=== PATIENT | female | born 1945 | race Caucasian/White ===

== ENCOUNTER 2021-03-13 23:29 | Emergency (ER) | payer MEDICARE, SELFPAY ==
--- NOTE | ~2021-03-13 | XR_ITS ---
EXAMINATION: XR CHEST CLINICAL INFORMATION: Cough and fever COMPARISON: None TECHNIQUE: 2 views of the chest were obtained. FINDINGS: Lung volumes are symmetric. No focal consolidation is seen. No evidence of pneumothorax, pleural effusion, or pulmonary edema. The cardiomediastinal contour is unremarkable. No acute osseous findings are seen. XR/XR chest 2V IMPRESSION: No acute cardiopulmonary findings.
[2021-03-14 00:17] VITALS: BP 178/83; PULSE 73; RESP 16; TEMP 37.6; O2SAT 95; BMI 25.4
--- NOTE | 2021-03-14 01:17 | ED.URI ---
HPI - URI/Sore Throat General Chief Complaint: Upper Respiratory Symptoms <Vic Murdock MD - Last Filed: 03/14/21 01:57> Stated Complaint: cough/fever <Vic Murdock MD - Last Filed: 03/14/21 01:57> Time Seen by Provider: 03/14/21 01:17 <Vic Murdock MD - Last Filed: 03/14/21 01:57> Source: patient <Vic Murdock MD - Last Filed: 03/14/21 01:57> Mode of arrival: ambulatory <Vic Murdock MD - Last Filed: 03/14/21 01:57> Limitations: no limitations <Vic Murdock MD - Last Filed: 03/14/21 01:57> History of Present Illness HPI Narrative: cough for 3 days, vaccinated against COVID, no history of asthma or COPD, 100.2 earlier today. <Vic Murdock MD - Last Filed: 03/14/21 01:57> MD elicited complaint: fever and nasal congestion <Vic Murdock MD - Last Filed: 03/14/21 01:57> Onset (ago): hour(s) <Vic Murdock MD - Last Filed: 03/14/21 01:57> Consistency: intermittent <Vic Murdock MD - Last Filed: 03/14/21 01:57> Severity: moderate <Vic Murdock MD - Last Filed: 03/14/21 01:57> Exacerbating factors: nothing <Vic Murdock MD - Last Filed: 03/14/21 01:57> Relieving factors: nothing <Vic Murdock MD - Last Filed: 03/14/21 01:57> Associated symptoms: fever, chills and cough <Vic Murdock MD - Last Filed: 03/14/21 01:57> Related Data Home Medications: Previous Rx's Medication Instructions Recorded azithromycin See Rx Instructions .ROUTE 03/14/21 .COMPLEX #6 tab benzonatate [Tessalon Perles] 100 mg PO TID PRN 5 Days #20 cap 03/14/21 ibuprofen 400 mg PO Q6H PRN #20 tab 03/14/21 <Vic Murdock MD - Last Filed: 03/14/21 01:57> Allergies/Adverse Reactions: Allergies Allergy/AdvReac Type Severity Reaction Status Date / Time No Known Allergies Allergy Verified 03/14/21 01:19 <Vic Murdock MD - Last Filed: 03/14/21 01:57> Review of Systems Constitutional: Constitutional: Reports no additional constitutional complaints <Vic Murdock MD - Last Filed: 03/14/21 01:57> Eyes: Eyes: Reports no additional eye complaints <Vic Murdock MD - Last Filed: 03/14/21 01:57> ENT: Denies dizziness <Vic Murdock MD - Last Filed: 03/14/21 01:57> Cardiovascular: Cardiovascular: Reports no additional cardiovascular complaints <Vic Murdock MD - Last Filed: 03/14/21 01:57> Respiratory: Respiratory: Reports as per HPI <Vic Murdock MD - Last Filed: 03/14/21 01:57> Gastrointestinal: Gastrointestinal: Reports no additional gastrointestinal complaints <Vic Murdock MD - Last Filed: 03/14/21 01:57> Genitourinary: Genitourinary: Reports no additional female genitourinary complaints <Vic Murdock MD - Last Filed: 03/14/21 01:57> Musculoskeletal: Musculoskeletal: Reports no additional musculoskeletal complaints <Vic Murdock MD - Last Filed: 03/14/21 01:57> Integumentary/Breasts: Skin/Breast: Denies rash <Vic Murdock MD - Last Filed: 03/14/21 01:57> Neurologic: Reports system reviewed and no additional complaints, except as documented, Denies dizziness and Denies Sensory deficit (Neuro) <Vic Murdock MD - Last Filed: 03/14/21 01:57> Psychiatric: Psychiatric: Denies anxiety <Vic Murdock MD - Last Filed: 03/14/21 01:57> [facility] Social History Social History: Social History Advance Directives: No Advance Directives Information Provided: No <Vic Murdock MD - Last Filed: 03/14/21 01:57> Physical Exam Vital Signs: Vital Signs: Last Vital Signs Temp 99.7 F 03/14/21 00:17 Pulse 65 03/14/21 01:52 Resp 16 03/14/21 00:17 BP 178/83 H 03/14/21 00:17 Pulse Ox 95 03/14/21 00:17 Body Mass Index 25.4 <Vic Murdock MD - Last Filed: 03/14/21 01:57> Vital Signs: Last Vital Signs Temp 99.7 F 03/14/21 00:17 Pulse 65 03/14/21 01:52 Resp 16 03/14/21 00:17 BP 178/83 H 03/14/21 00:17 Pulse Ox 95 03/14/21 00:17 Body Mass Index 25.4 <Radha Mauro MD - Last Filed: 03/14/21 03:15> Const: General: healthy appearing <Vic Murdock MD - Last Filed: 03/14/21 01:57> Nutritional Appearance: average body habitus <Vic Murdock MD - Last Filed: 03/14/21 01:57> Orientation/consciousness: oriented to person and patient oriented x3 <Vic Murdock MD - Last Filed: 03/14/21 01:57> Limitations: no limitations <Vic Murdock MD - Last Filed: 03/14/21 01:57> HENMT: Head: Yes normal to inspection <Vic Murdock MD - Last Filed: 03/14/21 01:57> Ears: external ears normal <Vic Murdock MD - Last Filed: 03/14/21 01:57> General nose exam: Normal external nose present <Vic Murdock MD - Last Filed: 03/14/21 01:57> Mouth: Normal oral and palatal mucosa present and oropharynx normal <Vic Murdock MD - Last Filed: 03/14/21 01:57> Throat: Yes posterior oropharynx normal <Vic Murdock MD - Last Filed: 03/14/21 01:57> Eyes: General: appearance normal, both eyes and all related structures <Vic Murdock MD - Last Filed: 03/14/21 01:57> Neck: Other: supple <Vic Murdock MD - Last Filed: 03/14/21 01:57> Neck: Yes normal visual inspection <Vic Murdock MD - Last Filed: 03/14/21 01:57> Chest: Chest palpation & inspection: normal inspection of the chest <Vic Murdock MD - Last Filed: 03/14/21 01:57> Resp: Other: diffuse wheezing <Vic Murdock MD - Last Filed: 03/14/21 01:57> Cardio: Jugular venous distension: no JVD <Vic Murdock MD - Last Filed: 03/14/21 01:57> Rate: regular rate <Vic Murdock MD - Last Filed: 03/14/21 01:57> Rhythm: regular rhythm <Vic Murdock MD - Last Filed: 03/14/21 01:57> Heart sounds: S1 normal heart sound present and S2 normal heart sound present <Vic Murdock MD - Last Filed: 03/14/21 01:57> GI: Inspection: Yes normal to inspection <Vic Murdock MD - Last Filed: 03/14/21 01:57> Palpation (GI): Soft to palpation, nontender and No hepatosplenomegaly present <Vic Murdock MD - Last Filed: 03/14/21 01:57> Auscultation: normal bowel sounds <Vic Murdock MD - Last Filed: 03/14/21 01:57> : General: Yes no CVA tenderness <Vic Murdock MD - Last Filed: 03/14/21 01:57> Back/Spine/Pelvis: Back: no CVA tenderness <Vic Murdock MD - Last Filed: 03/14/21 01:57> Skin: General skin exam: no rashes or lesions noted <Vic Murdock MD - Last Filed: 03/14/21 01:57> Neuro: General: oriented to person and patient oriented x3 <Vic Murdock MD - Last Filed: 03/14/21 01:57> Cranial nerves: Yes CN's II-XII intact bilaterally <Vic Murdock MD - Last Filed: 03/14/21 01:57> Motor exam (neuro): 5/5 motor strength present throughout <Vic Murdock MD - Last Filed: 03/14/21 01:57> Sensory Exam: No Sensory deficit (Neuro) <Vic Murdock MD - Last Filed: 03/14/21 01:57> Extrem: General: Yes normal to inspection <Vic Murdock MD - Last Filed: 03/14/21 01:57> Psych: Appearance: grossly normal <Vic Murdock MD - Last Filed: 03/14/21 01:57> Course Course Course Narrative: patient to get albuterol, COVID test and xray will be reevaluated by Dr. Mauro <Vic Murdock MD - Last Filed: 03/14/21 01:57> MDM - URI/Sore Throat MDM Narrative Medical decision making narrative: Patient's fluid was grossly negative. RSV negative. Coronavirus negative. Well-appearing. Repeat exam lungs clear. If x-ray is negative for discharge patient home. Will give patient is as the park Motrin for pain. Close on Profore coughing. Currently in stable condition. <Radha Mauro MD - Last Filed: 03/14/21 03:15> Differential Diagnosis Differential diagnosis: Likely upper respiratory infection <Radha Mauro MD - Last Filed: 03/14/21 03:15> Medical Records Attestation: I reviewed the patient's medical records. <Radha Mauro MD - Last Filed: 03/14/21 03:15> Lab Data Attestation: I reviewed the patient's lab results. <Radha Mauro MD - Last Filed: 03/14/21 03:15> Labs: Lab Results 03/14/21 Range/Units 01:59 Coronavirus (PCR) NEGATIVE (Negative) Influenza Type A (PCR) NEGATIVE (Negative) Influenza Type B (PCR) NEGATIVE (Negative) RSV RNA Qual (PCR) NEGATIVE (Negative) <Vic Murdock MD - Last Filed: 03/14/21 01:57> Lab Results 03/14/21 Range/Units 01:59 Coronavirus (PCR) NEGATIVE (Negative) Influenza Type A (PCR) NEGATIVE (Negative) Influenza Type B (PCR) NEGATIVE (Negative) RSV RNA Qual (PCR) NEGATIVE (Negative) <Radha Mauro MD - Last Filed: 03/14/21 03:15> Discharge Plan Discharge Clinical Impression: Upper respiratory infection <Vic Murdock MD - Last Filed: 03/14/21 01:57> Patient Disposition: Home, Self-Care <Vic Murdock MD - Last Filed: 03/14/21 01:57> Instructions: Upper Respiratory Infection (ED) <Vic Murdock MD - Last Filed: 03/14/21 01:57> Prescriptions: New ibuprofen 400 mg tablet 400 mg PO Q6H PRN (Reason: pain) Qty: 20 RF: 0 benzonatate [Tessalon Perles] 100 mg capsule 100 mg PO TID PRN (Reason: cough) 5 Days Qty: 20 RF: 0 azithromycin 250 mg tablet See Rx Instructions .ROUTE .COMPLEX Qty: 6 RF: 0 <Vic Murdock MD - Last Filed: 03/14/21 01:57> Referrals: Whitney Bradford MD [Primary Care Provider] - 2 days <Vic Murdock MD - Last Filed: 03/14/21 01:57>
[2021-03-14] MEDS: Albuterol Sulfate 90 MCG 8 GM INHALER 4 PUFF INHALE (01:47)
[2021-03-14 01:52] VITALS: PULSE 65; O2SAT 95
[2021-03-14 02:41] LABS: Influenza A PCR NEGATIVE (Negative); Influenza B PCR NEGATIVE (Negative); Resp Syncy Virus RNA Qual PCR NEGATIVE (Negative); SARS COV2 PCR INHOUSE NEGATIVE (Negative)
== END 2021-03-14 03:58 | disposition home or self-care (01) ==
PROVIDERS: Emergency Medicine; Emergency Provider Emergency Medicine Emergency Medical Services; PCP Internal Medicine
DX: J06.9 Acute upper respiratory infection, unspecified (principal); R05 Cough; Z20.822 Contact with and (suspected) exposure to COVID-19
CPT/HCPCS: 0241U; 36415; 71046; 94640; 99283; 99284

== ENCOUNTER 2024-03-14 09:05 | Day surgery (SDC) | payer MEDICARE, SELFPAY ==
[2024-03-09 09:49] VITALS: BMI 27.9
--- NOTE | 2024-03-10 14:17 | HO.ANESPROP2 ---
Documented by User: Ariana Espino NP 03/10/24 14:17 HPI - Anesthesia Eval Consult details Narrative: 78yo F for Right Cataract Extraction IOL Insertion No previous cataract on record PMFSH Past Medical History Medical History (Updated 03/09/24 @ 07:59 by Marii Ann RN) Diverticulosis Insomnia Dizziness Pre-diabetes Hyperlipidemia Thyroid disease Elevated TSH Surgical History Surgical History (Updated 03/09/24 @ 08:00 by Marii Ann RN) Hx of left breast biopsy Hx of appendectomy H/O colonoscopy Social History Social History Patient Tobacco Use Status: Never used Tobacco Advance Directives: No Advance Directives Information Provided: Yes Advance Directives on File: No Patient : No : No Meds Allergies Allergy/AdvReac Type Severity Reaction Status Date / Time milk Allergy Sneezing Verified 03/09/24 08:01 soy Allergy Flushing Verified 03/09/24 08:01 Home Medications ?Medication ?Instructions ?Recorded ?Confirmed ?Last Taken ?Type ascorbic acid (vitamin C) 500 mg 500 mg PO DAILY 03/09/24 03/09/24 Unknown History tablet yatitxp-tvu-drc [id number]-afgvxrni 250 1 tab PO BID 03/09/24 03/09/24 Unknown History mg-40 mg-5 mg-125 unit tablet cyanocobalamin (vitamin B-12) 1,000 mcg PO DAILY 03/09/24 03/09/24 Unknown History 1,000 mcg tablet (Vitamin B-12) glucosamine sulf dipot 1 cap PO DAILY 03/09/24 03/09/24 Unknown History chlr,msm,chond 550 mg-C 30 mg-opal 1 mg capsule (Glucosamine Chondroitin) lactobacillus combination no.4 3 3,000 mmu cells PO DAILY 03/09/24 03/09/24 Unknown History billion cell capsule (Probiotic) magnesium 100 mg capsule 100 mg PO DAILY 03/09/24 03/09/24 Unknown History melatonin 10 mg sublingual tablet 10 mg sublingual BEDTIME 03/09/24 03/09/24 Unknown History vitamin B complex 1 tab PO DAILY 03/09/24 03/09/24 Unknown History vitamin E 200 unit capsule 200 unit PO DAILY 03/09/24 03/09/24 Unknown History zinc 10 mg tablet 10 mg PO DAILY 03/09/24 03/09/24 Unknown History Exam Height,Weight and Vital Signs: Height 4 ft 11 in Weight 62.596 kg Assessment and Plan Assessment Anesthesia Assessment: Chart Reviewed Documented by User: Shorty Caraballo MD 03/14/24 09:45 PMFSH Past Medical History Medical History (Updated 03/09/24 @ 07:59 by Marii Ann RN) Diverticulosis Insomnia Dizziness Pre-diabetes Hyperlipidemia Thyroid disease Elevated TSH Family History Family history of problems with anesthesia: No Surgical History Surgical History (Updated 03/09/24 @ 08:00 by Marii Ann RN) Hx of left breast biopsy Hx of appendectomy H/O colonoscopy History of Problems with Anesthesia: No Social History Social History Patient Tobacco Use Status: Never used Tobacco Advance Directives: No Advance Directives Information Provided: Yes Advance Directives on File: No Patient : No : No Meds Allergies Allergy/AdvReac Type Severity Reaction Status Date / Time milk Allergy Sneezing Verified 03/09/24 08:01 soy Allergy Flushing Verified 03/09/24 08:01 Home Medications ?Medication ?Instructions ?Recorded ?Confirmed ?Last Taken ?Type ascorbic acid (vitamin C) 500 mg 500 mg PO DAILY 03/09/24 03/09/24 Unknown History tablet cybdjiu-eor-elg [id number]-kubpudpf 250 1 tab PO BID 03/09/24 03/09/24 Unknown History mg-40 mg-5 mg-125 unit tablet cyanocobalamin (vitamin B-12) 1,000 mcg PO DAILY 03/09/24 03/09/24 Unknown History 1,000 mcg tablet (Vitamin B-12) glucosamine sulf dipot 1 cap PO DAILY 03/09/24 03/09/24 Unknown History chlr,msm,chond 550 mg-C 30 mg-opal 1 mg capsule (Glucosamine Chondroitin) lactobacillus combination no.4 3 3,000 mmu cells PO DAILY 03/09/24 03/09/24 Unknown History billion cell capsule (Probiotic) magnesium 100 mg capsule 100 mg PO DAILY 03/09/24 03/09/24 Unknown History melatonin 10 mg sublingual tablet 10 mg sublingual BEDTIME 03/09/24 03/09/24 Unknown History vitamin B complex 1 tab PO DAILY 03/09/24 03/09/24 Unknown History vitamin E 200 unit capsule 200 unit PO DAILY 03/09/24 03/09/24 Unknown History zinc 10 mg tablet 10 mg PO DAILY 03/09/24 03/09/24 Unknown History Exam Airway Mallampati Class: II TM Dist: >3cm Neck ROM: Full Assessment and Plan Assessment Anesthesia Assessment: Anesthesia Plan Discussed Final Anesthetic Review Family History of Problems with Anesthesia: No History of Problems with Anesthesia: No NPO: Yes ASA Class: II Final Preanesthetic Review: No Changes in Pt Med Stat, Meds/Allgs Chart Reviewed, Consent Obtained/Reviewed and Anes Risks/Benef Reviewed Patient Risk: Low Procedure Risk: Low Anesthetic Plan Anesthetic Plan: MAC: Disposition: Standard PACU
[2024-03-14 09:25] VITALS: BP 165/51; PULSE 60; RESP 18; TEMP 36.1; O2SAT 95; BMI 33.1
[2024-03-14] MEDS: Lactated Ringers 500 ML 50 ML IV (09:38)
[2024-03-14] MEDS: Tetracaine HCl/PF 0.5% Oph Sol 4 ML DROPS 1 DROP EYE-RIGHT (09:39)
[2024-03-14] MEDS: Phenylephrine HCL 2.5% Oph SoL 2 ML BOTTLE 1 DROP EYE-RIGHT ×3 (09:39→09:47)
[2024-03-14] MEDS: Ketorolac Tromethamine 0.5% Op 10 ML DROPS 1 DROP EYE-RIGHT ×3 (09:39→09:47)
[2024-03-14] MEDS: Cyclopentolate 1 % Ophth Sol 2 ML DRPBTL 1 DROP EYE-RIGHT ×3 (09:40→09:48)
[2024-03-14] MEDS: Tropicamide 1 % Ophth Sol 3 ML BTL 1 DROP EYE-RIGHT ×3 (09:40→09:48)
--- NOTE | 2024-03-14 10:55 | MHC.SHP ---
Pre-Procedural Eval Section A - 24 Hr Update-Section A only Date of Service: 03/14/24 The patient is an INPATIENT: No Changes since office visit: No Cold of Flu in the past 2 weeks, No New Medical Problems, No Changes in Medication and No Patient answered all questions The patient has been examined within 24 hours of the surgical procedure. The History & Physical has been completed within 30 days and I have reviewed it.: Yes Section B - Complete if H&P > 30 days Chief Complaint: Age-related nuclear cataract, right eye Allergies: Allergies Allergy/AdvReac Type Severity Reaction Status Date / Time milk Allergy Sneezing Verified 03/09/24 08:01 soy Allergy Flushing Verified 03/09/24 08:01 Plan Diagnosis/Plan: Unchanged I have reviewed the history and physical and performed a pertinent physical examination on my patient. No changes have occurred unless specified. Time Spent With Patient Time: Total time managing care of this patient today ____ minutes.
--- NOTE | 2024-03-14 10:56 | P.PCNO_ITS ---
Ophthalmology Procedure Procedure Date of Service: 03/14/24 Ophthalmology Viscoelastic: Healon Duet Dual Pack Pro Ophthalmology Lenses: IOL Acrysof MP - MA60AC (24.5) Procedure Notes: PREOPERATIVE DIAGNOSIS: Decreased visual acuity right eye secondary to cataract POSTOPERATIVE DIAGNOSIS: Same PROCEDURE: Right cataract extraction with intraocular lens insertion SURGEON: Colten Peres M.D. ANESTHESIA: Topical/MAC ESTIMATED BLOOD LOSS: None COMPLICATIONS: None After obtaining informed consent, the patient was brought to the operating room suite and placed in the supine position. After adequate sedation per anesthesia, topical drops of Tetracaine were given to the right eye. The eye was then prepped and draped in the usual sterile fashion. The operating room microscope was then positioned over the operative eye and a lid speculum placed. A paracentesis was created. Viscoelastic was then instilled into the anterior chamber. A three plane incision was then created temporally, utilizing a 2.85 mm keratome. Capsulotomy forceps were then utilized to create a circular tear capsulotomy. Hydrodissection and hydrodelineation were carried out until adequate mobilization of the nucleus occurred. Phacoemulsification was then utilized to remove the dense central nu cleus followed by removal of the cortical material utilizing the automated aspiration irrigation unit. Viscoelastic was instilled into the posterior capsular bag followed by placement of a posterior chamber intraocular lens without difficulty. The residual Viscoelastic was then removed utilizing the automated IA machine. The wound was checked and found to be watertight. The patient tolerated the procedure well and the lid speculum was removed. Intracameral injection of Vigamox 0.1 mL followed by a subtenon injection of Kenalog-40 0.2 mL were administered. The patient will be seen in the a.m.
[2024-03-14 11:25] VITALS: BP 126/44; PULSE 58; RESP 12; TEMP 36.1; O2SAT 97
== END 2024-03-14 11:32 | disposition home or self-care (01) ==
PROVIDERS: PCP Internal Medicine; Visit Provider Ophthalmology
PROC: (CPT 66985; principal; 2024-03-14 10:50)
DX: H25.11 Age-related nuclear cataract, right eye (principal)
CPT/HCPCS: 66984; J2250; J3301; V2630

== ENCOUNTER 2024-03-28 07:58 | Day surgery (SDC) | payer MEDICARE, SELFPAY ==
[2024-03-09 09:55] VITALS: BMI 27.9
--- NOTE | 2024-03-24 12:08 | HO.ANESPROP2 ---
Documented by User: Ariana Espino NP 03/24/24 12:09 HPI - Anesthesia Eval Consult details Narrative: 78yo F for Left Cataract Extraction IOL Insertion Right eye 03/14/24: Midaz 1 PMFSH Past Medical History Medical History (Updated 03/09/24 @ 07:59 by Marii Ann RN) Diverticulosis Insomnia Dizziness Pre-diabetes Hyperlipidemia Thyroid disease Elevated TSH Family History Family history of problems with anesthesia: No Surgical History Surgical History (Updated 03/09/24 @ 08:00 by Marii Ann RN) Hx of left breast biopsy Hx of appendectomy H/O colonoscopy History of Problems with Anesthesia: No Social History Social History Patient Tobacco Use Status: Never used Tobacco Substance Use Type Other:: THC Advance Directives: No Advance Directives Information Provided: Yes Advance Directives on File: No Patient : No : No Meds Allergies Allergy/AdvReac Type Severity Reaction Status Date / Time milk Allergy Sneezing Verified 03/09/24 08:01 soy Allergy Flushing Verified 03/09/24 08:01 Home Medications ?Medication ?Instructions ?Recorded ?Confirmed ?Last Taken ?Type ascorbic acid (vitamin C) 500 mg 500 mg PO DAILY 03/09/24 03/09/24 Unknown History tablet fkjauxo-qxz-ahd E8-R4-atagcboz 250 1 tab PO BID 03/09/24 03/09/24 Unknown History mg-40 mg-5 mg-125 unit tablet cyanocobalamin (vitamin B-12) 1,000 mcg PO DAILY 03/09/24 03/09/24 Unknown History 1,000 mcg tablet (Vitamin B-12) glucosamine sulf dipot 1 cap PO DAILY 03/09/24 03/09/24 Unknown History chlr,msm,chond 550 mg-C 30 mg-opal 1 mg capsule (Glucosamine Chondroitin) lactobacillus combination no.4 3 3,000 mmu cells PO DAILY 03/09/24 03/09/24 Unknown History billion cell capsule (Probiotic) magnesium 100 mg capsule 100 mg PO DAILY 03/09/24 03/09/24 Unknown History melatonin 10 mg sublingual tablet 10 mg sublingual BEDTIME 03/09/24 03/09/24 Unknown History vitamin B complex 1 tab PO DAILY 03/09/24 03/09/24 Unknown History vitamin E 200 unit capsule 200 unit PO DAILY 03/09/24 03/09/24 Unknown History zinc 10 mg tablet 10 mg PO DAILY 03/09/24 03/09/24 Unknown History Exam Height,Weight and Vital Signs: Height 4 ft 11 in Weight 62.596 kg Assessment and Plan Assessment Anesthesia Assessment: Chart Reviewed Final Anesthetic Review Family History of Problems with Anesthesia: No History of Problems with Anesthesia: No Documented by User: Shorty Caraballo MD 03/28/24 08:43 PMFSH Past Medical History Medical History (Updated 03/09/24 @ 07:59 by Marii Ann RN) Diverticulosis Insomnia Dizziness Pre-diabetes Hyperlipidemia Thyroid disease Elevated TSH Surgical History Surgical History (Updated 03/09/24 @ 08:00 by Marii Ann RN) Hx of left breast biopsy Hx of appendectomy H/O colonoscopy Social History Social History Patient Tobacco Use Status: Never used Tobacco Substance Use Type Other:: THC Advance Directives: No Advance Directives Information Provided: Yes Advance Directives on File: No Patient : No : No Meds Allergies Allergy/AdvReac Type Severity Reaction Status Date / Time milk Allergy Sneezing Verified 03/09/24 08:01 soy Allergy Flushing Verified 03/09/24 08:01 Home Medications ?Medication ?Instructions ?Recorded ?Confirmed ?Last Taken ?Type ascorbic acid (vitamin C) 500 mg 500 mg PO DAILY 03/09/24 03/09/24 Unknown History tablet txbfwah-zjt-zdz V3-X9-wchrcokx 250 1 tab PO BID 03/09/24 03/09/24 Unknown History mg-40 mg-5 mg-125 unit tablet cyanocobalamin (vitamin B-12) 1,000 mcg PO DAILY 03/09/24 03/09/24 Unknown History 1,000 mcg tablet (Vitamin B-12) glucosamine sulf dipot 1 cap PO DAILY 03/09/24 03/09/24 Unknown History chlr,msm,chond 550 mg-C 30 mg-opal 1 mg capsule (Glucosamine Chondroitin) lactobacillus combination no.4 3 3,000 mmu cells PO DAILY 03/09/24 03/09/24 Unknown History billion cell capsule (Probiotic) magnesium 100 mg capsule 100 mg PO DAILY 03/09/24 03/09/24 Unknown History melatonin 10 mg sublingual tablet 10 mg sublingual BEDTIME 03/09/24 03/09/24 Unknown History vitamin B complex 1 tab PO DAILY 03/09/24 03/09/24 Unknown History vitamin E 200 unit capsule 200 unit PO DAILY 03/09/24 03/09/24 Unknown History zinc 10 mg tablet 10 mg PO DAILY 03/09/24 03/09/24 Unknown History Exam Airway Mallampati Class: II TM Dist: >3cm Neck ROM: Full Assessment and Plan Assessment Anesthesia Assessment: Anesthesia Plan Discussed Final Anesthetic Review NPO: Yes ASA Class: II Final Preanesthetic Review: No Changes in Pt Med Stat, Meds/Allgs Chart Reviewed, Consent Obtained/Reviewed and Anes Risks/Benef Reviewed Patient Risk: Low Procedure Risk: Low Anesthetic Plan Anesthetic Plan: MAC: Disposition: Standard PACU
[2024-03-28] MEDS: Tetracaine HCl/PF 0.5% Oph Sol 4 ML DROPS 1 DROP EYE-LEFT (08:54)
[2024-03-28] MEDS: Lactated Ringers 500 ML 50 ML IV (08:54)
[2024-03-28] MEDS: Tropicamide 1 % Ophth Sol 3 ML BTL 1 DROP EYE-LEFT ×3 (08:55→09:05)
[2024-03-28] MEDS: Ketorolac Tromethamine 0.5% Op 10 ML DROPS 1 DROP EYE-LEFT ×3 (08:55→09:05)
[2024-03-28] MEDS: Cyclopentolate 1 % Ophth Sol 2 ML DRPBTL 1 DROP EYE-LEFT ×3 (08:55→09:05)
[2024-03-28] MEDS: Phenylephrine HCL 2.5% Oph SoL 2 ML BOTTLE 1 DROP EYE-LEFT ×3 (08:55→09:05)
[2024-03-28 09:06] VITALS: BP 141/62; PULSE 66; RESP 18; TEMP 36.7; O2SAT 96
--- NOTE | 2024-03-28 09:45 | MHC.SHP ---
Pre-Procedural Eval Section A - 24 Hr Update-Section A only Date of Service: 03/28/24 The patient is an INPATIENT: No Changes since office visit: No Cold of Flu in the past 2 weeks, No New Medical Problems, No Changes in Medication and No Patient answered all questions The patient has been examined within 24 hours of the surgical procedure. The History & Physical has been completed within 30 days and I have reviewed it.: Yes Section B - Complete if H&P > 30 days Chief Complaint: Age-related nuclear cataract, left eye Allergies: Allergies Allergy/AdvReac Type Severity Reaction Status Date / Time milk Allergy Sneezing Verified 03/28/24 09:07 soy Allergy Flushing Verified 03/28/24 09:07 Plan Diagnosis/Plan: Unchanged I have reviewed the history and physical and performed a pertinent physical examination on my patient. No changes have occurred unless specified. Time Spent With Patient Time: Total time managing care of this patient today ____ minutes.
--- NOTE | 2024-03-28 09:46 | HO.PNOPHT ---
Ophthalmology Procedure Procedure Date of Service: 03/28/24 Ophthalmology Viscoelastic: Healon Duet Dual Pack Pro Ophthalmology Lenses: IOL Acrysof MP - MA60AC (24.5) Procedure Notes: PREOPERATIVE DIAGNOSIS: Decreased visual acuity left eye secondary to cataract POSTOPERATIVE DIAGNOSIS: Same PROCEDURE: Left cataract extraction with intraocular lens insertion SURGEON: Colten Peres M.D. ANESTHESIA: Topical/MAC ESTIMATED BLOOD LOSS: None COMPLICATIONS: None After obtaining informed consent, the patient was brought to the operation room suite and placed in the supine position. After adequate sedation per anesthesia, topical drops of Tetracaine were given to the left eye. The eye was then prepped and draped in the usual sterile fashion. The operating room microscope was then positioned over the operative eye and a lid speculum placed. A paracentesis was created. Viscoelastic was then instilled into the anterior chamber. A three plane incision was then created temporally, utilizing a 2.85 mm keratome. Capsulotomy forceps were then utilized to create a circular tear capsulotomy. Hydrodissection and hydrodelineation were carried out until adequate mobilization of the nucleus occurred. Phacoemulsification was then utilized to remove the dense central nucleus followed by removal of the cortical material utilizing the automated aspiration irrigation unit. Viscoat elastic was instilled into the posterior capsular bag followed by placement of a posterior chamber intraocular lens without difficulty. The residual Viscoat elastic was then removed utilizing the automated IA machine. The wound was check and found to be watertight. The patient tolerated the procedure well and the lid speculum was removed. Intracameral injection of Vigamox 0.1 mL followed by a subtenon injection of Kenalog-40 0.2 mL were administered. The patient will be seen in the a.m.
[2024-03-28 10:16] VITALS: BP 136/57; PULSE 55; RESP 16; TEMP 36.2; O2SAT 98
== END 2024-03-28 10:32 | disposition home or self-care (01) ==
PROVIDERS: PCP Internal Medicine; Visit Provider Ophthalmology
PROC: (CPT 66985; principal; 2024-03-28 09:40)
DX: H25.12 Age-related nuclear cataract, left eye (principal); H54.7 Unspecified visual loss; H35.3131 Nonexudative age-related macular degeneration, bilateral, early dry stage; H52.13 Myopia, bilateral; H43.393 Other vitreous opacities, bilateral; D18.01 Hemangioma of skin and subcutaneous tissue; R79.89 Other specified abnormal findings of blood chemistry; E03.9 Hypothyroidism, unspecified; R73.03 Prediabetes; E78.5 Hyperlipidemia, unspecified; R42 Dizziness and giddiness; G47.00 Insomnia, unspecified; Z79.899 Other long term (current) drug therapy
CPT/HCPCS: 66984; J2250; J3301; V2630